=== PATIENT | male | born 2000 | race Caucasian/White ===

== ENCOUNTER 2022-11-13 11:19 | Emergency (ER) | payer SELFPAY ==
[~2022-11-13] VITALS: Ht 157.5 cm; Wt 52.2 kg
[2022-11-13 12:05] VITALS: BP 115/70
--- NOTE | 2022-11-13 12:09 | NUR ---
ABDOMINAL PAIN (04/29) DESCRIBED CONSTANT BURNING PAIN ONSET THIS MORNING WITH N/V/D. DENIES FEVER. NO RECENT TRAVEL, NO SICK CONTACTS. PMH: DENIES
[2022-11-13] MEDS ORDERED: MORPHINE SULFATE 2 MG/ML SYR IVP STA (12:56)
[2022-11-13] MEDS ORDERED: ONDANSETRON 4 MG/2 ML VIAL IVP ONE (13:00)
[2022-11-13] MEDS ORDERED: NACL 0.9% 1,000 ML IV ONE (13:00)
--- NOTE | 2022-11-13 13:31 | NUR ---
Khari tran in [facility] - 11/13/22 at 1340 by JON TAKEN TO CT SCAN
[2022-11-13] MEDS ORDERED: MORPHINE SULFATE 2 MG/ML SYR IVP SCH (14:00)
[2022-11-13 14:02] LABS: APPEARANCE,URINE CLEAR (CLEAR); BILIRUBIN,URINE NEGATIVE (NEGATIVE); BLOOD, URINE TRACE-I (NEGATIVE); COLOR,URINE YELLOW (YELLOW); LEUKOCYTE ESTERASE ,URINE NEGATIVE (NEGATIVE); NITRITE, URINE NEGATIVE (NEGATIVE); UGLUCOSE NEGATIVE (NEGATIVE)
[2022-11-13 14:28] LABS: BASOPHILS % (AUTO) 0.1 % (0.0-2.0); HEMATOCRIT 39.1 % (36-52); HEMOGLOBIN 13.3 g/dL (12.0-18.0); LYMPHOCYTES # (AUTO) 0.7 K/uL (2.0-11.5); MEAN CORPUSCULAR HEMOGLOBIN 30 pg (27-31); MEAN CORPUSCULAR HGB CONC 34 g/dL (33-37); MONOCYTES # (AUTO) 0.3 K/uL (0.8-1.0); MONOCYTES % (AUTO) 2.4 % (1.7-9.3); NEUTROPHILS # (AUTO) 12.8 K/uL (1.8-7.7); NEUTROPHILS % (AUTO) 92.5 % (42.2-75.2); PLATELET COUNT (AUTO) 288 K/uL (140-450); RED BLOOD CELL COUNT(AUTO) 4.45 MIL/uL (4.20-6.10); RED CELL DISTRIBUTION WIDTH 13.3 % (11.6-13.7); WHITE BLOOD COUNT (AUTO) 13.9 K/uL (4.8-10.8)
[2022-11-13 14:28] LABS: WBC,URINE 0-5 /HPF (0-5)
[2022-11-13 14:40] LABS: ANION GAP 13.5 (8-16); CARBON DIOXIDE 29.4 mmol/L (21-32); CREATININE 0.9 mg/dL (0.6-1.3); POTASSIUM 3.9 mmol/L (3.5-5.1); TOTAL BILIRUBIN 0.9 mg/dL (0.0-1.0)
[2022-11-13] MEDS ORDERED: IBUP-2213 PO (16:29)
[2022-11-13] MEDS ORDERED: ONDA-188 SL (16:29)
--- NOTE | 2022-11-13 17:12 | NUR ---
Patient discharged with v/s stable. Written and verbal after care instructions given and explained. Patient alert, oriented and verbalized understanding of instructions. Ambulatory with steady gait. All questions addressed prior to discharge. ID band removed. Patient advised to follow up with PMD. Rx of ZOFRAN AND IBUPROFEN given. Patient educated on indication of medication including possible reaction and side effects. Opportunity to ask questions provided and answered.
== END 2022-11-13 17:12 | disposition home or self-care (01) ==
LOC: MED 11:19
DX: R10.31 Right lower quadrant pain (principal); R11.2 Nausea with vomiting, unspecified; F12.90 Cannabis use, unspecified, uncomplicated; Z79.899 Other long term (current) drug therapy
CPT/HCPCS: 36415; 74177; 80053; 81001; 81003; 83690; 85025; 96361; 96374; 96375; 99285; J2270; J2405; J7030; Q9967